=== PATIENT | female | born 1935 | race Caucasian/White ===

== ENCOUNTER 2021-06-09 19:59 | Emergency (ER) | payer MEDICARE, OTHER ==
[2021-06-09 20:53] LABS: BASOPHIL 0.9 % (0-2); EOSINOPHIL 2.1 % (0-7); HCT 36.2 % (37.0-47.0); HGB 12.1 g/dl (12.5-16.0); LYMPHOCYTE 32.2 % (15-48); MCH 31.3 pg (25.0-31.0); MCHC 33.4 g/dL (32.0-36.0); MCV 93.8 fL (78.0-100.0); MONOCYTE 9.8 % (0-12); MPV 10.2 fL (6.0-9.5); NEUTROPHIL 54.7 % (41-80); NRBC 0; PLT 189 K/uL (150-400); RBC 3.86 M/uL (4.20-5.40); RDW 13.8 % (11.5-14.0); WBC 6.7 K/uL (4.0-10.5)
[2021-06-09 21:07] LABS: ALBUMIN 3.1 g/dL (3.4-5.0); BILIRUBIN - TOTAL 0.3 mg/dL (0.2-1.0); BUN/CREAT RATIO (CALC) 20.2 RATIO; CREATININE 1.09 mg/dL (0.51-0.95); GLOBULIN (CALCULATION) 3.4 g/dL; POTASSIUM 4.5 mmol/L (3.5-5.1); TOTAL PROTEIN 6.5 g/dL (6.4-8.2)
[2021-06-09 21:44] LABS: BILIRUBIN NEGATIVE (NEGATIVE); BLOOD NEGATIVE Ery/uL (NEGATIVE); CLARITY CLEAR (CLEAR); COLOR YELLOW (YELLOW); GLUCOSE (U) NORMAL (NORMAL); LEUKOCYTES TRACE Leu/uL (NEGATIVE); NITRITE NEGATIVE (NEGATIVE); PROTEIN NEGATIVE (NEGATIVE); pH 6.5 (5.0-9.0)
[2021-06-09 22:26] LABS: BACTERIA TRACE
[2021-06-09 22:27] LABS: YEAST PRESENT
[2021-06-09] MEDS ORDERED: KEFLEX250 MG PO (23:35)
== END 2021-06-10 00:04 | disposition home or self-care (01) ==
LOC: FER 19:59
PROVIDERS: Internal Medicine
DX: E86.0 Dehydration (principal); N39.0 Urinary tract infection, site not specified; I25.2 Old myocardial infarction; I10 Essential (primary) hypertension; F17.210 Nicotine dependence, cigarettes, uncomplicated; Z90.49 Acquired absence of other specified parts of digestive tract
CPT/HCPCS: 36415; 80053; 81001; 85025; 99285; J0696; J7030